=== PATIENT | male | born 1985 | race Caucasian/White ===

== ENCOUNTER 2016-10-16 14:44 | Emergency (ER) | payer OTHER ==
[~2016-10-16] VITALS: Ht 172.7 cm; Wt 101.2 kg
[~2016-10-16 14:44] MED LIST: IBUP-1277 PO; TYLOTC500 PO
[2016-10-16 14:58] VITALS: TEMP 36.8; Ht 172.7 cm; Wt 101.2 kg
[2016-10-16] MEDS ORDERED: PROPARACAINE HCL 0.5% OP SOLN 15 ML BTL OP STA (15:24)
[2016-10-16] MEDS ORDERED: BUPR8SUB19 SL (15:54)
[2016-10-16] MEDS ORDERED: CIPR0.3S OP (16:24)
[2016-10-16 16:48] VITALS: BP 136/78; PULSE 58; O2SAT 98
--- NOTE | 2016-10-16 17:10 | EMERGENCY ROOM VISIT NOTE ---
ED Visit Note First contact with patient: 15:19 Chief Complaint: I got something in my right eye. History of Present Illness: Mr. Borden is a 31-year-old white male who relates into the ED accompanied by his mother complaining of a possible foreign body in the right eye. Patient reports approximately one hour ago he was at work. He reports he removed his safety goggles to wash his hands before leaving for the day. 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 Since that time he reports he has been having a green foreign body sensation over the entire eye and some mild tearing. He has not identified any aggravating or alleviating factors related to these symptoms. He has not taken any medications for therapy for these symptoms. He did flush the eye with water at work but continues to have a foreign body sensation. He denies any associated headache, visual changes, eye pain, vomiting. Review of Systems: As noted above in history of present illness. Past Medical History: Current Medications: Subutex. Allergies to Medications: Patient denies. Social History: Patient is currently employed; Physical Examination: Vital Signs: Date Time Temp Pulse Resp B/P Pulse Ox O2 Delivery O2 Flow Rate FiO2 10/16/16 16:48 58 18 136/78 98 10/16/16 14:58 36.8 67 18 146/81 100 Room Air GENERAL: 31-year-old male in mild distress due to pain, nontoxic-appearing, afebrile and hemodynamically stable. NEUROLOGICAL: Awake, alert and oriented to person, place and time. Answering questions appropriately and following commands. Normal gait. SKIN: Warm, dry and pink. No soft tissue eruptions or trauma noted. HEENT: Atraumatic and normocephalic. PERRLA. EOMI without nystagmus. Sclera injected and conjunctiva pink without active drainage. No foreign bodies noted under the eyelids are embedded in the cornea. Anterior chamber was clear. Before irrigation I did anesthetize the eyes with Alcaine employed staining over the cornea and on visual exam there is a small amount of uptake at the 2 o' clock position. After irrigation with Beto lens and saline he was reanesthetized and re-stained and examined under slit lamp. There was a oval shaped uptake of the dye consistent with at least a corneal abrasion if not an early ulcer. I did not appreciate any depth where erosion at the level of the lesion. Visual acuity: 20/20 without correction. ED Course: Patient is assessed as noted above. As noted previously Alcaine was used to anesthetize the eye. Patient was educated about tonight's findings and instructed on his treatment plan; he verbalizes understanding and agreement with this plan. Clinical Impression: Right corneal abrasion. Work related injury. Disposition: Patient discharged home in stable condition accompanied by his mother; prior to departure he was reassessed and subjectively reported that he was pain-free but continued to have foreign body sensations. Plan: Patient was encouraged to alternate ibuprofen and acetaminophen. Patient was prescribed Ciloxan ophthalmic solution and instructed on achieves. Patient was encouraged to follow-up with his Workmen's Compensation for referral to ophthalmology; I did instruct the patient he should not return to work until he followed up with ophthalmology hopefully in the next 36-48 hours. Patient was encouraged return ED for uncontrolled pain, fevers, headaches, vomiting, visual changes or any new/concerning symptoms.
== END 2016-10-16 16:49 | disposition home or self-care (01) ==
LOC: C.EDB 14:45 → C.EDD 16:49
DX: S05.01XA Injury of conjunctiva and corneal abrasion without foreign body, right eye, initial encounter (principal); Y99.0 Civilian activity done for income or pay; Y92.89 Other specified places as the place of occurrence of the external cause; X58.XXXA Exposure to other specified factors, initial encounter; Z79.899 Other long term (current) drug therapy